=== PATIENT | male | born 1955 | race Caucasian/White ===

== ENCOUNTER 2023-07-27 14:29 | Outpatient (CLI) | payer MEDICARE | END 2023-07-27 14:30 | disposition home or self-care (01) | LOC: BURRAD 14:29 | PROVIDERS: ATTEND Physician Assistant Medical | DX: J90 Pleural effusion, not elsewhere classified (principal); B18.2 Chronic viral hepatitis C; K70.30 Alcoholic cirrhosis of liver without ascites; D64.9 Anemia, unspecified; R76.8 Other specified abnormal immunological findings in serum | CPT/HCPCS: 71046 ==

== ENCOUNTER 2023-11-27 08:17 | Emergency (ER) | payer MEDICARE ==
[2023-11-27] MEDS ORDERED: Ipratropium/Albuterol 3 ML NEB ONE (08:38)
[2023-11-27 08:41] LABS: #Basophils 0.1 thou/uL (0.0-0.2); #Lymphocytes 1.8 thou/uL (1.20-3.40); #Monocytes 0.5 thou/uL (0.11-0.59); #Neutrophils 2.5 thou/uL (1.40-6.50); %Basophils 1.4 % (0.0-1.0); %Eosinophils 17.2 % (0.0-10.0); %Lymphocytes 31.3 % (21.0-51.0); %Neutrophils 42.1 % (42.0-75.0); Hematocrit 47.4 % (42.0-52.0); Hemoglobin 16.6 g/dL (14.0-18.0); Mean Corpuscular HGB CONC 35.1 g/dL (32.0-36.0); Mean Corpuscular Hemoglobin 32.3 pg (27.0-31.0); Mean Corpuscular Volume 92.2 fl (78.0-98.0); Mean Platelet Volume 7.8 fL (7.4-10.4); Platelet Count 129 10x3/uL (130-400); RBC Distribution Width 12.5 % (11.5-14.5); Red Blood Cell (RBC) Count 5.14 mill/uL (4.70-6.10); White Blood Cell (WBC) Count 5.8 10x3/uL (4.8-10.8)
[2023-11-27 08:49] LABS: Bilirubin Negative (Negative); Blood, Urine Trace (Negative); Clarity Clear (Clear); Glucose, Urine (Dipstick) Negative (Negative); Ketone, Urine Negative (Negative); Leukocyte Small (Negative); Nitrite Negative (Negative); Protein, Urine (Dipstick) Negative (Neg-Trace); Urobilinogen 0.2 mg/dL (Less than 2)
[2023-11-27 08:54] LABS: Bacteria/HPF None Seen HPF (None Seen); CAUTI Indications for Culture Dysuria,urgency,freq; RBC/HPF 0-3 HPF (0-3); Squamous Epithelial 0-3 HPF (0-3); WBC/HPF 0-3 HPF (0-3)
[2023-11-27 08:55] LABS: Urine Culture Reflex No No
[2023-11-27 08:59] LABS: ALT (SGPT) 23 U/L (8-55); AST (SGOT) 34 U/L (5-34); Albumin 4.3 g/dL (3.4-4.8); Alkaline Phosphatase 81 U/L (40-110); Anion Gap 15 mmol/L (10-20); BUN (Urea Nitrogen) 11 mg/dL (8.4-25.7); Bilirubin, Total 2.2 mg/dL (0.2-1.2); Calc. Creatinine Clearance 0 mL/min (70-130); Calcium 10.2 mg/dL (7.8-10.44); Carbon Dioxide 26 mmol/L (23-31); Chloride 100 mmol/L (98-107); Estimated GFR 95; Globulin 4.5 g/dL (2.4-3.5); Glucose 93 mg/dL (80-115); Potassium 4.6 mmol/L (3.5-5.1); Protein, Total 8.8 g/dL (5.8-8.1); Sodium 136 mmol/L (136-145)
[2023-11-27 09:00] LABS: Troponin I 0.026 ng/mL (< 0.028)
[2023-11-27] MEDS ORDERED: Iopamidol 370 76% 100 ML VIAL ONE (11:00)
== END 2023-11-27 10:53 | disposition home or self-care (01) ==
LOC: BURERS 08:17
DX: R06.02 Shortness of breath (principal)
CPT/HCPCS: 71045; 71275; 74177; 80053; 81001; 83880; 84484; 85025; 93005; 99285; Q9967; 36415; J7620